=== PATIENT | female | born 1955 | race Caucasian/White ===

== ENCOUNTER 2018-07-07 22:03 | Emergency (ER) | payer OTHER ==
[~2018-07-07] VITALS: Ht 162.6 cm; Wt 76.8 kg
[~2018-07-07 22:03] MED LIST: ACYC-57 PO; MULT-506 PO; OMEP40CA41 PO; ONDA4TAB7 SL; SIMV40TA2 PO
[2018-07-07 22:08] VITALS: TEMP 36.3; Ht 162.6 cm; Wt 76.8 kg
[2018-07-07] MEDS ORDERED: DICY20TA10 PO (23:25)
[2018-07-07] MEDS ORDERED: GUAISYP4 PO (23:25)
[2018-07-07] MEDS ORDERED: PANT40TA PO (23:25)
[2018-07-07] MEDS ORDERED: AMOX875T PO (23:25)
[2018-07-07] MEDS ORDERED: MELA3CAP PO (23:25)
--- NOTE | 2018-07-07 23:25 | EMERGENCY ROOM VISIT NOTE ---
History Report prepared by Elena: Marisol Mistry Under the Supervision of: Dr. Lucila Martinez D.O. First contact with patient: 23:08 Chief Complaint: ABNORMAL LABS Stated Complaint: CHEST PAIN, DIZZINESS, NUMBNESS History of Present Illness The patient is a 63 year old female who presents to the Emergency Room with complaints of abnormal labs that were drawn earlier today. The patient also complains of chest pain. She rates her pain a 5/10 in severity. She states she was sick 2 weeks ago with a sore throat and chest congestion. She notes she saw a PA at [facility] and was told it may be a sinus infection or bronchitis. She states she was given a shot of steroids and was prescribed a steroid for 5 days and antibiotics. The patient notes she started having tingling in her arms and weakness in her bilateral legs. She reports she saw the PA at [facility] again today for chest discomfort and had a chest x-ray, EKG, and labs drawn. She states her labs showed an elevated D-dimer. The patient is still complaining of chest pain in the ED. The patient states she takes medication for high cholesterol but denies any other health issues. She denies abdominal pain or swelling in her arms or legs. She states she does have a productive cough. She notes her mother has a history of mini strokes. The patient denies any recent travels. She notes she has a history of sinus infections but has not had one in the last couple of years. She reports her father has Factor 5 and she was tested 10 years ago and was told she is a carrier but does not have the disease. Source of History: patient Onset: earlier today Position: chest Symptom Intensity: 5/10 Associated Symptoms: + cough, + chest pain, + weakness, No abdominal pain Review of Systems See HPI for pertinent positives & negatives. A total of 10 systems reviewed and were otherwise negative. Past Medical & Surgical Surgical Problems: (1) H/O tubal ligation (2) H/O: hysterectomy (3) History of cholecystectomy Family History Diabetes mellitus FH: cancer FH: gallbladder disease Hypertension Kidney disease Kidney stones Social History Smoking Status: Never Smoker Marital Status: Housing Status: lives with family Occupation Status: employed Current/Historical Medications Scheduled Acyclovir (Zovirax), 400 MG PO BID Amoxicillin & Pot Clavulanate (Augmentin 875-125 mg), 1 TAB PO BID Melatonin (Melatonin), 3 MG PO QPM Multivitamin (Multivitamin), 1 TAB PO DAILY Pantoprazole (Protonix), 40 MG PO BID Simvastatin (Zocor), 40 MG PO QAM Scheduled PRN Dicyclomine Hcl (Dicyclomine Hcl), 1 TAB PO Q6 PRN for Guaifenesin/Codeine (Robitussin-Ac Syrup), 5 ML PO Q4 PRN for Cough Allergies Coded Allergies: Ceftriaxone (Verified Allergy, Severe, edema air way, face, lips tongue, ) Amitriptyline (Verified Allergy, Intermediate, extreme fatigue, 07/07/18) INFO FROM [facility] [place] Tramadol (Verified Allergy, Mild, ITCHING, CHEST TIGHTNESS, 07/07/18) INFO FROM [facility] [place] Cephalosporins (Unverified Allergy, Unknown, ., 07/07/18) Physical Exam Vital Signs Date Time Temp Pulse Resp B/P (MAP) Pulse Ox O2 Delivery O2 Flow Rate FiO2 07/08/18 01:30 74 26 121/79 92 07/08/18 00:25 82 18 128/79 94 Room Air 07/07/18 23:32 80 22 126/74 91 Room Air 07/07/18 22:57 79 07/07/18 22:08 36.3 85 18 164/85 96 Room Air Physical Exam HEENT: Head - normocephalic and atraumatic Pupils are equal, round, and reactive to light. Extraocular eye muscles are intact, and sclera are anicteric. Nose - moist nasal mucosa without discharge. Mouth - moist buccal mucosa. Oropharynx is nonerythematous and there is no tonsillar exudate or edema noted. Neck: Supple; no JVD, nuchal rigidity, cervical lymphadenopathy. Heart: Regular rate and rhythm. There is a normal S1 and S2 with no murmurs, clicks, or gallops appreciated. Lungs: Clear to auscultation bilaterally with no wheezes, rales, or rhonchi. Abdomen: Soft, completely nontender, nondistended, with good bowel sounds. There are no palpable pulsatile masses or hepatosplenomegaly. There is no guarding, rigidity, or rebound noted. Extremities: No evidence of cyanosis, clubbing, or edema. There are easily palpable peripheral pulses. Skin: warm and dry with good turgor and no rashes. Medical Decision & Procedures ER Provider Diagnostic Interpretation: Radiology results as stated below per my review and the radiologist's interpretation: CT CHEST With Contrast: There is some artifact limiting evaluation for small peripheral PE. No central PE. Hypoventilatory changes/atelectasis. No evidence for infarct. No consolidation. No effusions. No evidence for edema. Small hiatal hernia. Cholecystectomy. Ectatic CBD may be related. No evidence for acute pancreatitis of the imaged pancreas. Questionable heterogenous thyroid versus artifact. Radiologist: Kirk Olson M.D. Laboratory Results 07/07/18 22:55 Red Blood Count 4.94, Mean Corpuscular Volume 94.5, Mean Corpuscular Hemoglobin 32.2, Mean Corpuscular Hemoglobin Concent 34.0, Mean Platelet Volume 10.4, Neutrophils (%) (Auto) 61.1, Lymphocytes (%) (Auto) 31.2, Monocytes (%) (Auto) 5.8, Eosinophils (%) (Auto) 1.2, Basophils (%) (Auto) 0.2, Neutrophils # (Auto) 7.82, Lymphocytes # (Auto) 3.99, Monocytes # (Auto) 0.74, Eosinophils # (Auto) 0.15, Basophils # (Auto) 0.02 07/07/18 22:55 Test 07/07/18 22:55 White Blood Count 12.78 K/uL (4.8-10.8) Red Blood Count 4.94 M/uL (4.2-5.4) Hemoglobin 15.9 g/dL (12.0-16.0) Hematocrit 46.7 % (37-47) Mean Corpuscular Volume 94.5 fL (80-100) Mean Corpuscular Hemoglobin 32.2 pg (25-34) Mean Corpuscular Hemoglobin Concent 34.0 g/dl (32-36) Platelet Count 317 K/uL (130-400) Mean Platelet Volume 10.4 fL (7.4-10.4) Neutrophils (%) (Auto) 61.1 % Lymphocytes (%) (Auto) 31.2 % Monocytes (%) (Auto) 5.8 % Eosinophils (%) (Auto) 1.2 % Basophils (%) (Auto) 0.2 % Neutrophils # (Auto) 7.82 K/uL (1.4-6.5) Lymphocytes # (Auto) 3.99 K/uL (1.2-3.4) Monocytes # (Auto) 0.74 K/uL (0.11-0.59) Eosinophils # (Auto) 0.15 K/uL (0-0.5) Basophils # (Auto) 0.02 K/uL (0-0.2) RDW Standard Deviation 47.9 fL (36.4-46.3) RDW Coefficient of Variation 13.9 % (11.5-14.5) Immature Granulocyte % (Auto) 0.5 % Immature Granulocyte # (Auto) 0.06 K/uL (0.00-0.02) Anion Gap 10.0 mmol/L (3-11) Est Creatinine Clear Calc Drug Dose 62.0 ml/min Estimated GFR () 76.3 Estimated GFR (Non- 65.8 BUN/Creatinine Ratio 16.1 (10-20) Calcium Level 9.2 mg/dl (8.5-10.1) Troponin I < 0.015 ng/ml (0-0.045) Thyroid Stimulating Hormone (TSH) 4.270 uIu/ml (0.300-4.500) Laboratory results per my review. ECG Per My Interpretation Indication: chest pain Rate (beats per minute): 76 Rhythm: normal sinus Findings: no acute ischemic change, no ectopy, other (no ST segment changes) ED Course 230: Past medical records reviewed. The patient was evaluated in room C11B. A complete history and physical exam was performed. An IV lock was initiated and labs were drawn as above. A 12-lead EKG was obtained as described above. The patient will go for CT scan of the chest to rule out PE. 0105: Upon reevaluation, the patient is resting comfortably. I discussed findings and results with her. She verbalized agreement of the treatment plan. She was discharged home. Medical Decision The patient is a 63 year old female who presents to the Emergency Department with abnormal labs. Differential diagnosis includes acute coronary syndrome, PE , pneumonia, bronchitis, pleurisy. Lab results show: White count 12.7 Stable H&H Negative Troponin Normal renal function Normal glucose TSH 4.2 This is a 63-year-old female patient who was referred here for further evaluation of an elevated d-dimer. The patient has been having significant weakness and some substernal chest pain. PCP ordered laboratory studies which revealed an elevated d-dimer. She was referred here for further evaluation to rule out PE CT scan of the chest showed no evidence of acute PE. However I remain concerned about the substernal chest discomfort and weakness. I discussed the case with the hospitalist and they will evaluate for further management. Medication Reconcilliation Current Medication List: was personally reviewed by me Blood Pressure Screening Patient's blood pressure: Normal blood pressure Impression Primary Impression: Substernal chest pain Additional Impression: Weakness Scribe Attestation The scribe's documentation has been prepared under my direction and personally reviewed by me in its entirety. I confirm that the note above accurately reflects all work, treatment, procedures, and medical decision making performed by me. Departure Information Dispostion Home / Self-Care Referrals No Doctor, Assigned (PCP) [facility] Instructions [facility] Additional Instructions Rest No strenuous activity til follow up with PCP REferral to cardiology if chest pain continues Problem Qualifiers
[2018-07-07] MEDS ORDERED: OPTIRAY 320 IV PRN (23:30)
[2018-07-07 23:32] LABS: BASO % 0.2 %; BASO ABS # 0.02 K/uL (0-0.2); EOS % 1.2 %; EOS ABS # 0.15 K/uL (0-0.5); HEMATOCRIT 46.7 % (37-47); HEMOGLOBIN 15.9 g/dL (12.0-16.0); IG# 0.06 K/uL (0.00-0.02); LYMPH % 31.2 %; LYMPH ABS # 3.99 K/uL (1.2-3.4); MEAN CELL VOLUME 94.5 fL (80-100); MEAN CORPUSCULAR HEMOGLOBIN 32.2 pg (25-34); MEAN PLATELET VOLUME 10.4 fL (7.4-10.4); MONO % 5.8 %; MONO ABS # 0.74 K/uL (0.11-0.59); NEUT % 61.1 %; NEUT ABS # 7.82 K/uL (1.4-6.5); PLATELET COUNT 317 K/uL (130-400); RED CELL DISTRIBUTION WIDTH CV 13.9 % (11.5-14.5); RED CELL DISTRIBUTION WIDTH SD 47.9 fL (36.4-46.3); WHITE BLOOD COUNT 12.78 K/uL (4.8-10.8)
[2018-07-07 23:45] LABS: BLOOD UREA NITROGEN 15 mg/dl (7-18); CALCIUM 9.2 mg/dl (8.5-10.1); CARBON DIOXIDE 25 mmol/L (21-32); CREATININE 0.92 mg/dl (0.60-1.20); GLUCOSE 107 mg/dl (70-99); POTASSIUM 3.7 mmol/L (3.5-5.1); SODIUM 140 mmol/L (136-145)
[2018-07-08 01:30] VITALS: BP 121/79; PULSE 74; O2SAT 92
--- NOTE | 2018-07-08 07:10 | DIAGNOSTIC IMAGING REPORT ---
(CHEST FOR PE) ANGIO WITH CT DOSE: 533.17 mGy.cm HISTORY: 63 years-old Female with presents with acute atypical chest pain, dizziness and chest numbness. TECHNIQUE: Multiple CTA images of the chest were obtained after the intravenous administration of 98 ml Optiray 320. Coronal and sagittal MIPS were obtained from the axial data set and were submitted for review. A dose lowering technique was utilized adhering to the principles of ALARA. COMPARISON: Chest radiograph 11/12/2014. FINDINGS: CTA: Heart is normal in size without pericardial effusion. Thoracic aorta is normal in both course and caliber without aneurysm or dissection. The imaged great vessels appear to be patent. The pulmonary arterial tree is opacified to level of the segmental branches. The distal segmental and subsegmental branches are not well-seen secondary to contrast bolus timing and respiratory motion. No pulmonary embolus identified. CT CHEST: Heterogeneous thyroid with suggestion of a 1.2 cm ill-defined right thyroid nodule which is mildly hypodense. No pathologically enlarged lymph nodes of the chest are identified. Dependent subsegmental groundglass bibasilar opacities suggest atelectasis. There is no pneumothorax, pleural effusion or evidence of pulmonary edema. No lobar airspace consolidation to suggest pneumonia. There are no suspicious pulmonary nodules or masses identified. The central airways appear patent. Prior cholecystectomy. Dilation of the condyle duct is likely secondary to postcholecystectomy state. Small sliding-type hiatal hernia. 7 mm hypodense lesion of the superior pole left kidney suggests renal cyst. Coarse calcifications of the bilateral breast parenchyma. Bones appear intact. IMPRESSION: 1. No acute intrathoracic abnormality identified, specifically no acute aortic pathology or evidence of pulmonary thromboembolic disease. Please note however that the distal segmental and subsegmental branches are not well-seen secondary to respiratory motion and contrast bolus timing. 2. No focal airspace consolidation to suggest pneumonia. No adenopathy. 3. Small sliding-type hiatal hernia. 4. Prior cholecystectomy with likely physiologic mild dilation of the common bile duct. The above report was generated using voice recognition software. It may contain grammatical, syntax or spelling errors. Electronically signed by: Tawanda Spence M.D. 07/08/2018 7:09 AM Dictated Date/Time: 07/08/2018 7:02 AM
[2018-07-10] MEDS ORDERED: ASPI-461 PO (17:29)
== END 2018-07-08 01:31 | disposition home or self-care (01) ==
LOC: C.EDB 22:05 → C.EDC 07-08 01:31
DX: R07.2 Precordial pain (principal); R53.1 Weakness; Z88.8 Allergy status to other drugs, medicaments and biological substances; Z88.5 Allergy status to narcotic agent